=== PATIENT | female | born 1990 | race African-American/Black ===

== ENCOUNTER 2019-09-10 02:30 | Inpatient (IN) | payer MEDICAID ==
[~2019-09-10] VITALS: Ht 177.8 cm; Wt 115.2 kg
[2019-09-10] MEDS ORDERED: NALOXONE HCL 0.4 MG/ML 1ML VIAL IM PRN (04:15)
[2019-09-10] MEDS ORDERED: METHYLERGONOVINE MALEATE 0.2 MG/ML IM PRN (04:15)
[2019-09-10] MEDS ORDERED: CARBOPROST TROMETHAMINE 250 MCG/ML AMPUL IM PRN (04:15)
[2019-09-10] MEDS ORDERED: LIDOCAINE HCL 1% 20ML VIAL (Pyxis) INJ INFIL SCH (04:15)
[2019-09-10] MEDS: LACTATED RINGERS 1,000 ML IV SCH ×2 (04:58→12:18)
[2019-09-10] MEDS ORDERED: AMPICILLIN 2,000 MG in SODIUM CHLORIDE 0.9% 100 ML IV SCH (05:00)
[2019-09-10] MEDS: BUTORPHANOL TARTRATE 2 MG/ML VIAL IV PRN ×2 (05:28→12:44)
[2019-09-10] MEDS: DEXT 5%/LR + PITOCIN 20UNITS/L 1,000 ML IV SCH ×2 (06:07→22:51)
[2019-09-10 06:08] LABS: BASOPHILS % 0.3 % (0.0-2.0); EOSINOPHILS % 1.7 % (0.0-5.0); HEMATOCRIT. 38.4 % (36.0-48.0); LYMPHOCYTES % 19.1 % (20.0-50.0); MEAN CORPUSCULAR HEMOGLOBIN 30.6 pg (28.0-32.0); MEAN CORPUSCULAR VOLUME 90.6 fL (81.0-99.0); MEAN PLATELET VOLUME 9.8 fl (7.4-10.4); MONOCYTES % 6.9 % (2.0-8.0); PLATELET 205 x1000/uL (130-400); RED BLOOD CELL COUNT 4.24 mill/uL (4.2-5.4)
[2019-09-10 06:22] LABS: INR 0.9; PARTIAL THROMBOPLASTIN TIME 27.8 sec (23.4-31.0)
[2019-09-10 06:33] LABS: CLARITY URINE CLEAR (CLEAR); COLOR URINE YELLOW (YELLOW); KETONES URINE NEGATIVE (NEGATIVE); LEUKOCYTE ESTERASE URINE 2+ (NEGATIVE); NITRITE URINE NEGATIVE (NEGATIVE); OCCULT BLOOD URINE 2+ (NEGATIVE); PROTEIN URINE NEGATIVE (NEGATIVE); SPECIFIC GRAVITY URINE 1.011 (1.005-1.030); UROBILINOGEN URINE 0.2 E.U./dL (0.2-1.0)
[2019-09-10 06:56] LABS: *AMPHETAMINES SCREEN URINE NEGATIVE (NEGATIVE); *BARBITURATES SCREEN URINE NEGATIVE (NEGATIVE); *BENZODIAZEPINES SCREEN URINE NEGATIVE (NEGATIVE)
[2019-09-10 06:57] LABS: *COCAINE SCREEN URINE NEGATIVE (NEGATIVE); METHADONE URINE SCREEN NEGATIVE (NEGATIVE); OPIATES URINE SCREEN NEGATIVE (NEGATIVE)
[2019-09-10 06:58] LABS: CANNABINOID URINE SCREEN NEGATIVE (NEGATIVE)
[2019-09-10 07:09] LABS: PHENCYCLIDINE URINE SCREEN NEGATIVE (NEGATIVE)
[2019-09-10 09:26] LABS: HEPATITIS B SURFACE ANTIGEN NEGATIVE
[2019-09-10] MEDS: AMPICILLIN 1,000 MG in SODIUM CHLORIDE 0.9% 50 ML IV SCH ×3 (12:12→17:53)
[2019-09-10] MEDS ORDERED: LACTATED RINGERS 1,000 ML IV SCH (12:30)
[2019-09-10] MEDS ORDERED: FENTANYL CITRATE/PF 50MCG/ML 2ML VIAL ONE (14:44)
[2019-09-10] MEDS ORDERED: BUPIVACAINE HCL/PF 0.25% (2.5MG/ML) 10ML ONE (14:45)
[2019-09-10] MEDS ORDERED: EPHEDRINE SULFATE 50MG/ML VIAL ONE (14:45)
[2019-09-10] MEDS ORDERED: CEFAZOLIN SODIUM 1000MG/VIAL ONE (14:45)
[2019-09-10] MEDS ORDERED: ROPIVACAINE HCL 2MG/ML (0.2%) 200ML BOTTLE IR ONE (15:00)
[2019-09-10] MEDS ORDERED: ROPIVACAINE HCL/PF EPIDURAL 200 ML EPI ONE (15:15)
[2019-09-10] MEDS ORDERED: DEXT 5%/LR + PITOCIN 20UNITS/L 1,000 ML IV SCH (22:24)
[2019-09-10] MEDS ORDERED: IBUPROFEN 400MG TABLET PO PRN (22:30)
[2019-09-10] MEDS ORDERED: RHO(D) IMMUNE GLOBULIN 300 MCG/SYR IM PRN (22:30)
[2019-09-10] MEDS ORDERED: BENZOCAINE/LANOLIN/ALOE VERA SPRAY TOP PRN (22:30)
[2019-09-11 00:20] VITALS: BP 123/56
[2019-09-11 02:00] VITALS: BP 119/60
[2019-09-11 04:45] VITALS: BP 121/58
[2019-09-11 06:34] LABS: BASOPHILS % 0.1 % (0.0-2.0); EOSINOPHILS % 0.6 % (0.0-5.0); HEMATOCRIT. 32.7 % (36.0-48.0); LYMPHOCYTES % 9.5 % (20.0-50.0); MEAN CORPUSCULAR HEMOGLOBIN 30.3 pg (28.0-32.0); MEAN CORPUSCULAR VOLUME 90.3 fL (81.0-99.0); MEAN PLATELET VOLUME 9.3 fl (7.4-10.4); MONOCYTES % 6.5 % (2.0-8.0); NEUTROPHILS % 83.3 % (40.0-76.0); PLATELET 184 x1000/uL (130-400); RED BLOOD CELL COUNT 3.62 mill/uL (4.2-5.4); RED CELL DISTRIBUTION WIDTH 14.1 % (11.6-14.6)
[2019-09-11 07:45] VITALS: BP 122/52
[2019-09-11] MEDS: IBUPROFEN 800MG TABLET PO PRN ×2 (08:54→16:35)
[2019-09-11 16:00] VITALS: BP 122/64
[2019-09-11 19:30] VITALS: BP 114/63
[2019-09-12 04:00] VITALS: BP 110/66
[2019-09-12] MEDS: IBUPROFEN 800MG TABLET PO PRN (04:54)
[2019-09-12 08:15] VITALS: BP 130/79
== END 2019-09-12 11:11 | disposition home or self-care (01) | DRG 560 ==
LOC: OBSVTOIN 02:30 → 8 EST LDRP 02:30 → 8EST 23:34
PROVIDERS: ADMIT Obstetrics & Gynecology; ATTEND Obstetrics & Gynecology
PROC: 10E0XZZ Delivery of Products of Conception, External Approach (ICD-10-PCS; principal; 2019-09-10)
PROC: 0W8NXZZ Division of Female Perineum, External Approach (ICD-10-PCS; 2019-09-10)
PROC: 3E0R3BZ Introduction of Anesthetic Agent into Spinal Canal, Percutaneous Approach (ICD-10-PCS; 2019-09-10)
PROC: 00HU33Z Insertion of Infusion Device into Spinal Canal, Percutaneous Approach (ICD-10-PCS; 2019-09-10)
DX: O99.02 Anemia complicating childbirth (principal); D62 Acute posthemorrhagic anemia; O48.0 Post-term pregnancy; Z37.0 Single live birth; Z3A.41 41 weeks gestation of pregnancy
CPT/HCPCS: 36415; 80305; 81003; 85025; 86592; 86703; 86762; 86850; 86900; 87340; 99281; G0378; J0290; J0595; J0690; J2590; J2795; J3010; J3490; J7050; J7120